=== PATIENT | female | born 1955 | race Caucasian/White ===

== ENCOUNTER 2022-02-09 10:43 | Outpatient (REF) | payer MEDICARE, MEDICAID, SELFPAY ==
[2022-02-09 11:03] LABS: MANUAL DIFF FLAG NO
[2022-02-09 12:10] LABS: Basophils Absolute Auto 0.1 X10*3/uL (0.0-0.2); Basophils Percent Auto 0.8 % (0-2); Eosinophils Absolute Auto 0.4 X10*3/uL (0.0-0.4); Eosinophils Percent Auto 4.2 % (0-4); Hematocrit 38.6 % (37.0-47.0); Hemoglobin 12.9 g/dl (12.0-16.0); Imm Gran Abs Auto 0.05 X10*3/uL (0.00-0.03); Imm Gran Pct Auto 0.5 % (0.0-0.4); Lymphocytes Absolute Auto 1.3 X10*3/uL (1.2-4.9); Lymphocytes Percent Auto 13.3 % (20-40); Mean Corpuscular HGB Conc 33.4 g/dl (31.0-35.0); Mean Corpuscular Hemoglobin 30.1 pg (27.0-33.0); Mean Platelet Volume 10.7 fL (9.4-12.3); Monocytes Percent Auto 10.2 % (2-11); Neutrophils Absolute Auto 7.1 x10*3/uL (2.0-8.3); Platelet Count 371 X10*3/uL (160-400); Red Blood Count 4.29 X10*6/uL (4.20-5.50); Red Cell Distribution Width 13.3 % (11.0-16.0)
[2022-02-09 12:49] LABS: Erythrocyte Sedimentation Rate 25 MM/HR (0-20)
[2022-02-09 13:01] LABS: Alanine Aminotransferase 11 U/L (0-31); Albumin Level 4.3 g/dL (3.5-5.0); Alkaline Phosphatase 105 U/L (39-117); Anion Gap 20 (12-20); Aspartate Amino Transferase 19 U/L (5-31); Bilirubin Total 0.2 mg/dL (0.0-1.0); Blood Urea Nitrogen 12 mg/dL (9-16); C Reactive Protein 2.23 mg/dL (< or = 0.50); Calcium 9.6 mg/dL (8.4-10.2); Carbon Dioxide 19 mmol/L (22-29); Chloride 105 mmol/L (96-108); Estimated Glomerular Filt Rate > 60; Glucose Random 83 mg/dL (60-115); Potassium 4.8 mmol/L (3.3-5.1); Sodium 139 mmol/L (135-145); Total Protein 7.1 g/dL (6.5-8.0)
== END 2022-02-09 10:44 | disposition home or self-care (01) ==
LOC: HO.LAB 10:43
PROVIDERS: Visit Provider Internal Medicine Rheumatology
DX: M05.79 Rheumatoid arthritis with rheumatoid factor of multiple sites without organ or systems involvement (principal); M81.0 Age-related osteoporosis without current pathological fracture
CPT/HCPCS: 20605; 36415; 80053; 85025; 85652; 86140; 99212

== ENCOUNTER → 2022-06-08 09:10 | Outpatient (BNVA) | payer MEDICARE, MEDICAID, SELFPAY | PROVIDERS: Visit Provider Internal Medicine Rheumatology | DX: M05.79 Rheumatoid arthritis with rheumatoid factor of multiple sites without organ or systems involvement (principal); M47.816 Spondylosis without myelopathy or radiculopathy, lumbar region; Z79.899 Other long term (current) drug therapy; Z96.649 Presence of unspecified artificial hip joint | CPT/HCPCS: 99212 ==

== ENCOUNTER 2022-11-09 08:50 | Outpatient (AMB) | payer MEDICARE, MEDICAID, SELFPAY ==
--- NOTE | 2022-11-09 08:57 | MHC.OFFVIS ---
Intake Vital Signs 11/09/22 08:57 11/09/22 08:58 Height 4 ft 11 in 4 ft 11 in Weight 169 lb 1.513 oz BMI 34.1 BP 154/90 H Blood Pressure Location Rt brachial Position Sitting Pulse 88 Pulse Source Pulse Oximeter Pulse Oximetry (%) 94 Oxygen Delivery Method Room Air Intake Visit Reasons: ra/oa - LVM with appt Intake Note: Patient presents for RA/OA Allergies codeine Allergy (Intermediate, Verified 11/09/22 09:02) Nausea and Vomiting zolpidem [From Ambien] Adverse Reaction (Severe, Verified 11/09/22 09:02) kidneys crashed Medication List - Last Reconciled 11/09/22 by Franco Longoria MD albuterol sulfate 90 mcg/actuation (ProAir HFA) 2 puffs inhalation Q6H PRN ascorbate calcium (vitamin C) 500 mg PO DAILY cholecalciferol (vitamin D3) 25 mcg PO DAILY citalopram 20 mg PO DAILY cyanocobalamin (vitamin B-12) 1,000 mcg PO DAILY cyclobenzaprine 10 mg PO TID PRN gabapentin 600 mg PO TID hydroxychloroquine 300 mg (1.5 x 200 mg) PO DAILY hydroxyzine HCl 10 mg PO TID PRN loperamide 2 mg PO DAILY losartan 25 mg PO DAILY meloxicam 7.5 - 15 mg (1 - 2 x 7.5 mg) PO DAILY PRN multivitamin 1 tab PO DAILY pantoprazole 20 mg PO DAILY simvastatin 40 mg PO BEDTIME sulfasalazine 0.5 grams PO QID vitamin B complex 1 tab PO DAILY HPI HPI Comments History of Present Illness Details The patient returns for evaluation of her rheumatoid arthritis. She remains on hydroxychloroquine 300 mg daily, gabapentin 600 mg t.i.d., meloxicam 7.5 mg daily, and sulfasalazine 1 g b.i.d.. She reports some pain in the right foot. She notes some splaying of the right 2nd and 3rd toes with some MTP pain in those areas. There was no injury involved. This has been going on for at least 2 or 3 months. She gets back pain but otherwise does not have other significant pains. Her respiratory status has been stable with no recent infections or flare of her COPD. She uses oxygen when she has shortness of breath with exercise. She is overdue for an eye exam for monitoring her hydroxychloroquine use. [facility], [facility] Medical History Alcohol abuse Back pain Bronchitis COPD (chronic obstructive pulmonary disease) Depression GERD (gastroesophageal reflux disease) Hyperlipemia Hypertension Lung nodule Osteoarthritis Restless leg syndrome Seropositive rheumatoid arthritis Tuberculosis Surgical History Cataracts, bilateral H/O tubal ligation History of back surgery History of hip replacement History of neck surgery Normal colonoscopy Normal endoscopic ultrasound of upper gastrointestinal tract Family History Father Diabetes Hypertension CVA (cerebral vascular accident) Renal cancer Mother Diabetes CHF (congestive heart failure) Sister Arthritis CAD (coronary artery disease) Sister Arthritis Thyroid disease CVA (cerebral vascular accident) Social History Household Members: Family Housing: House Alcohol intake: current Alcohol intake frequency: a few times a month Alcohol type: beer Patient Tobacco Use Status: Former Tobacco user Years Smoked: quit 2 1/2 years ago e-Cigarette/Vaping Use: Currently Using service: No Current occupational status: retired 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 Card Details: Negative chest pain, edema and syncope Resp Details: She has her usual exertional dyspnea. Negative for cough and wheezing GI Details: Negative indigestion/heartburn, nausea, abdominal pain, bowel changes, diarrhea, constipation and bloody stool. Endo Details: Negative for polyuria and polydypsia Kane/Lymph Details: Negative for excessive bruising or bleeding. Physical Exam Vital Signs: Last Vital Signs Pulse 88 11/09/22 08:58 BP 154/90 H 11/09/22 08:58 Pulse Ox 94 11/09/22 08:58 Oxygen Delivery Method Room Air 11/09/22 08:58 BMI result Body Mass Index 34.1 APPEARANCE: Patient in no acute distress EYES no redness, pupils equal and reactive to light, eyelids normal EXTREMITIES: No edema, no calf tenderness, normal peripheral pulses. JOINT EXAM: Cervical Spine:.? Mild discomfort with rotation at 30 degrees or lateral flexion of 15 degrees.? No tenderness. Thoracic Spine:.? No scoliosis.? No tenderness on palpation. Lumbar Spine:.? Alignment normal.? Lumbar pain with flexion of 45 degrees.? No tenderness. Chest Wall:.? No tenderness, swelling, increased warmth or erythema. Hands:? Right:? Slight swelling without tenderness at the 1st 3 MCP joints.? There is some tenderness along the 3rd flexor tendon.? There is mild tenderness and soft tissue swelling at the 3rd PIP.? No thenar atrophy or sensory loss.? Left:? There is slight thickening and tenderness of the 1st 3 MCP joints.? She has? Mild tenderness and triggering at the 4th flexor tendon.? There is slight swelling of the PIP joints but with no tenderness.? Other joints are not tender or swollen today.? No thenar atrophy or sensory loss.? Wrists:? Right:? Mild pain with flexion at 45 degrees or with extension at 30 degrees.? There is significant dorsal swelling and mild to moderate dorsal and ventral tenderness but no redness or warmth.? Left:?? Mild pain with flexion extension at 60 degrees with some mild tenderness but no swelling.? No redness or warmth. Elbows:? Right:? Mild pain with flexion beyond 100 degrees or attempts at full extension.? She lacks about 15 degrees of full extension.? There is mild swelling and tenderness over the joint space but no redness or warmth.? Left:? Normal pain-free range of motion without tenderness, swelling, increased warmth or erythema. Shoulders:? Right: mild pain with abduction at 110 degrees or with extremes of internal or external rotation.? Mild anterior tenderness.? Left:?? Full range of motion without pain. No tenderness, weakness, swelling, increased warmth or erythema. Hips:? Right:? Decreased internal and external rotation to about 10 degrees each.? There is slight buttock discomfort with extremes of rotation.? No groin pain with motion.? Left:? Full range of motion without pain. Hip bursa:.? No tenderness. Knees:.?? Normal pain-free range of motion with mild patellofemoral crepitus but no effusion, tenderness, swelling, increased warmth or erythema.? There is no effusion or crepitation Ankles:.? Normal pain-free range of motion without tenderness, swelling, increased warmth or erythema. Feet:.? Right:? There is some soft tissue swelling in the 2nd-4th MTP joints. The 3rd is particularly tender but the others are mildly tender as well. There was no breaks in the skin, redness or warmth..? Left:? Normal pain-free range of motion without tenderness, swelling, increased warmth or erythema. ? Results Reviewed Results Reviewed: Lab work from [facility]: April 2022: Hemoglobin 13, white count 10.12 Aug 2022: Creatinine 0.85, AST 23, ALT 20, alkaline phosphatase 108 Assessment & Plan Assessment & Plan (1) assisted use of drug: Code(s): Z79.899 - Other terminal superintendent (current) drug therapy (2) COPD (chronic obstructive pulmonary disease): Code(s): J44.9 - Chronic obstructive pulmonary disease, unspecified (3) Osteoarthritis of lumbar spine: Comment: PVSS in the past, with multiple injections, opiates stopped 06/[address] Trimble felt that she was not receiving benefit and had comorbidities of depression and lack of effective coping skills. 08/26: L4-L5 fusion Code(s): M47.816 - Spondylosis without myelopathy or radiculopathy, lumbar region (4) Seropositive rheumatoid arthritis of multiple joints: Comment: Onset ~2013. RF and CCP positive Humira 11/25 - 02/25 - helpful but she ended up being hospitalized for pneumonia. March 2018: Hydroxychloroquine started. Eye exam OK 07/27 05/29: sulfasalazine added Code(s): M05.79 - Rheumatoid arthritis with rheumatoid factor of multiple sites without organ or systems involvement Plan The patient has some thickening in a few of the small joints in the hands but none of these were appreciably tender. However in the MTP region of the right foot there is tenderness and swelling. This is likely to be synovitis from the RA. She also could have incurred a stress fracture there so we will get an x-ray. We again discussed that additional antirheumatic treatment at this point would put her at greater risk for infection and she does not want to proceed with that for now. Her COPD seems stable but in the past she got into trouble with respiratory infections so she wishes to avoid immunosuppressive treatment. The lumbar pain from OA seems to be stable for now. We will get back to her with the results of the x-ray. In the meantime she will continue with current treatment. She could also see Podiatry about the foot pain. Recent blood work looked okay so I do not think we need to repeat that. She was again encouraged to follow through with Ophthalmology evaluation to monitor for hydroxychloroquine retinal toxicity. A follow-up in 4-5 months is recommended. 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
[2022-11-09 08:58] VITALS: BP 154/90; PULSE 88; O2SAT 94; BMI 34.1
== END 2022-11-09 09:31 | disposition home or self-care (01) ==
PROVIDERS: Visit Provider Internal Medicine Rheumatology
DX: Z79.899 Other long term (current) drug therapy (principal); J44.9 Chronic obstructive pulmonary disease, unspecified; M47.816 Spondylosis without myelopathy or radiculopathy, lumbar region; M05.79 Rheumatoid arthritis with rheumatoid factor of multiple sites without organ or systems involvement
CPT/HCPCS: 99213

== ENCOUNTER 2022-11-09 08:50 | Outpatient (REF) | payer MEDICARE, SELFPAY ==
--- NOTE | ~2022-11-09 | XR_ITS ---
EXAMINATION: XR FOOT, RIGHT CLINICAL INFORMATION: Pain in right foot ? Stress fracture. History RA and osteoporosis Patient states pain in separation between second and third digits COMPARISON: None available. TECHNIQUE: AP, lateral, and oblique views of the right foot. FINDINGS: There is separation of the second and third toes, wider than usual, which is likely due to the webbing the second and third digits, likely congenital. The bones are intact. No fracture. There is moderate degenerative change of the first metatarsophalangeal joint with marginal osteophyte formation. The second through fifth toes are flexed, limiting evaluation. There is a small erosion involving the head of the second metatarsal. XR/XR foot RT min 3V IMPRESSION: 1. Erosion involving the head of the second metatarsal. 2. Moderate degenerative change of the first metatarsophalangeal joint.
== END 2022-11-09 08:51 | disposition home or self-care (01) ==
LOC: HO.XRAY 08:50
PROVIDERS: Visit Provider Internal Medicine Rheumatology
DX: M24.174 Other articular cartilage disorders, right foot (principal); M79.672 Pain in left foot; M94.8X7 Other specified disorders of cartilage, ankle and foot
CPT/HCPCS: 73630; 99212

== ENCOUNTER 2023-03-22 08:47 | Outpatient (AMB) | payer MEDICARE, MEDICAID, SELFPAY ==
--- NOTE | 2023-03-22 08:48 | MHC.OFFVIS ---
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: No Accompanied by: Daughter Allergies codeine Allergy (Intermediate, Verified 03/22/23 08:56) Nausea and Vomiting zolpidem [From Ambien] Adverse Reaction (Severe, Verified 03/22/23 08:56) kidneys crashed Medication List - Last Reconciled 03/22/23 by Leia Molina RN albuterol sulfate 90 mcg/actuation (ProAir HFA) 2 puffs inhalation Q6H PRN ascorbate calcium (vitamin C) 500 mg PO DAILY cholecalciferol (vitamin D3) 25 mcg PO DAILY citalopram 20 mg PO DAILY cyanocobalamin (vitamin B-12) 1,000 mcg PO DAILY cyclobenzaprine 10 mg PO TID PRN gabapentin 600 mg PO TID hydroxychloroquine 300 mg (1.5 x 200 mg) PO DAILY hydroxyzine HCl 10 mg PO TID PRN loperamide 2 mg PO DAILY losartan 25 mg PO DAILY meloxicam 7.5 - 15 mg (1 - 2 x 7.5 mg) PO DAILY PRN multivitamin 1 tab PO DAILY pantoprazole 20 mg PO DAILY simvastatin 40 mg PO BEDTIME sulfasalazine 500 mg PO QID vitamin B complex 1 tab PO DAILY HPI HPI Comments History of Present Illness Details The patient returns accompanied by her daughter today for evaluation of her rheumatoid arthritis and osteoarthritis. She remains on hydroxychloroquine 300 mg daily, gabapentin 600 mg t.i.d., meloxicam 7.5 mg daily and sulfasalazine 1 g b.i.d.. With this regimen she seems to be reasonably comfortable. There is some back pain that radiates to the right buttock and RLQ. She was in the ER a few months ago with that pain. They did check out her abdomen with a CT scan. There were vascular calcifications and she was sent to a vascular surgeon but has not made that appointment. She does not seem to have any claudication in the legs however. She is also on citalopram for depression. I had ordered an ECG to monitor that use in conjunction with hydroxychloroquine but she has not done it yet. She is also overdue for an eye exam. The daughter is here today and will call for an appointment with the eye doctor to monitor her hydroxychloroquine. She was using a relative's walker but it seems to be malfunctioning. She gets pain in the hip and shortness of breath when she walks so needs a walker with a seat. [facility] Medical History Alcohol abuse Osteoarthritis Seropositive rheumatoid arthritis Back pain Restless leg syndrome Tuberculosis Depression Lung nodule COPD (chronic obstructive pulmonary disease) Bronchitis GERD (gastroesophageal reflux disease) Hyperlipemia Hypertension Surgical History H/O tubal ligation History of hip replacement Cataracts, bilateral History of neck surgery History of back surgery Normal endoscopic ultrasound of upper gastrointestinal tract Normal colonoscopy Family History Father Diabetes Hypertension CVA (cerebral vascular accident) Renal cancer Mother Diabetes CHF (congestive heart failure) Sister Arthritis CAD (coronary artery disease) Sister Arthritis Thyroid disease CVA (cerebral vascular accident) Social History Household Members: Family Housing: House Alcohol intake: current Alcohol intake frequency: a few times a month Alcohol type: beer Patient Tobacco Use Status: Former Tobacco user Years Smoked: quit 2 1/2 years ago e-Cigarette/Vaping Use: Currently Using service: No Current occupational status: retired 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 Card Details: Negative chest pain, edema and syncope Resp Details: Stable chronic exertional dyspnea. She does use home O2 occasionally. Negative for cough and wheezing GI Details: Negative indigestion/heartburn, nausea, abdominal pain, bowel changes, diarrhea, constipation and bloody stool. Endo Details: Negative for polyuria and polydypsia Kane/Lymph Details: Negative for excessive bruising or bleeding. Physical Exam Vital Signs: Last Vital Signs Temp 96.8 F 03/22/23 08:49 Pulse 85 03/22/23 08:49 Resp 16 03/22/23 08:49 BP 140/76 H 03/22/23 08:49 Pulse Ox 98 03/22/23 08:49 Oxygen Delivery Method Room Air 03/22/23 08:49 BMI result Body Mass Index 33.6 APPEARANCE: Patient in no acute distress EYES no redness, pupils equal and reactive to light, eyelids normal THROAT: Oral mucosa moist, no ulcerations NECK: No thyromegaly or masses, no adenopathy, trachea midline. HEART: Regulrar rhythm, S1-S2 heard, no murmurs, rubs or gallops. LUNG: Clear to percussion and auscultation ABD: Normal bowel sounds, no organomegaly, masses or tenderness. EXTREMITIES: No edema, no calf tenderness; the pulse on the right foot is 1+ in is 2+ on the left. No evidence for tissue ischemia. NEURO: Oriented and alert x3. No focal weakness. Reflexes symmetric. Gait slow and hesitant. SKIN: No inflammatory or neoplastic lesions. Normal color and turgor JOINT EXAM: ?Cervical Spine:.? Mild discomfort with rotation at 30 degrees or lateral flexion of 15 degrees.? No tenderness. Thoracic Spine:.? No scoliosis.? No tenderness on palpation. Lumbar Spine:.? Alignment normal.? Lumbar pain with flexion of 45 degrees.? No tenderness. Chest Wall:.? No tenderness, swelling, increased warmth or erythema. Hands:? Right:? Slight swelling without tenderness at the 1st 3 MCP joints.? There is no tenderness along the flexor tendons..? There is mild tenderness and soft tissue swelling at the 3rd PIP.? No thenar atrophy or sensory loss.? Left:? There is slight thickening and tenderness of the 1st 3 MCP joints.? She has? no triggering or tenderness in the flexor tendons.? There is slight swelling of the PIP joints but with no tenderness.? Other joints are not tender or swollen today.? No thenar atrophy or sensory loss.? Wrists:? Right:? Mild discomfort with flexion at 60 degrees or extension at 45 degrees.? There is mild dorsal swelling and mild dorsal and ventral tenderness but no redness or warmth.? Left:?? Mild pain with flexion extension at 60 degrees with some mild tenderness but no swelling.? No redness or warmth. Elbows:? Right:? Mild pain with flexion beyond 100 degrees or attempts at full extension.? She lacks about 15 degrees of full extension.? There is mild swelling and tenderness over the joint space but no redness or warmth.? Left:? Normal pain-free range of motion without tenderness, swelling, increased warmth or erythema. Shoulders:? Right: mild pain with abduction at 135 degrees or with extremes of internal or external rotation.? Mild anterior tenderness.? Left:?? Full range of motion without pain. No tenderness, weakness, swelling, increased warmth or erythema. Hips:? Right: Decreased internal and external rotation to about 10 degrees each.? There is slight buttock discomfort with extremes of rotation.? No groin pain with motion.? Left:? Full range of motion without pain. Hip bursa:.? No tenderness. Knees:.?? Normal pain-free range of motion with mild patellofemoral crepitus but no effusion, tenderness, swelling, increased warmth or erythema.? There is no effusion or crepitation Ankles:.? Normal pain-free range of motion without tenderness, swelling, increased warmth or erythema. Feet:.? Right:? There is some soft tissue swelling in the 2nd-4th MTP joints. The 3rd is particularly tender but the others are mildly tender as well. There was no breaks in the skin, redness or warmth..? Left:? Normal pain-free range of motion without tenderness, swelling, increased warmth or erythema. ?? Results Reviewed Results Reviewed: Laboratory Tests 02/09/22 11:01 Hgb 12.9 ESR 25 H Creatinine 0.72 AST 19 ALT 11 C-Reactive Protein 2.23 H Assessment & Plan Assessment & Plan (1) Osteoarthritis of lumbar spine: Comment: PVSS in the past, with multiple injections, opiates stopped 06/[address] Trimble felt that she was not receiving benefit and had comorbidities of depression and lack of effective coping skills. 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 RF and CCP positive Humira 11/25 - 02/25 - helpful but she ended up being hospitalized for pneumonia. March 2018: Hydroxychloroquine started. Eye exam OK 07/27 05/29: sulfasalazine added Code(s): M05.79 - Rheumatoid arthritis with rheumatoid factor of multiple sites without organ or systems involvement Plan Rheumatoid arthritis with a few swollen joints but not too much in the way of tenderness. She is I think therefore relatively well controlled with current treatment. Additional medication use with immunosuppressive is I think would be too risky for her. She is also limited by lower back pain due to lumbar osteoarthritis which tends to radiate to the right hip. The right hip replacement I think is doing okay. I gave her a prescription for a walker. I think she should probably get one with a seat since she has the COPD and back pain that is worse with walking. It would also help her walk with oxygen when needed. This would allow her to remain more mobile and maintain some degree of fitness. We will check lab work to monitor her sulfasalazine and meloxicam use. I again encouraged him to make an appointment to have the eyes evaluation for possible side effects from the hydroxychloroquine. A follow-up in 6 months seems reasonable. Orders: Orders Erythrocyte Sedimentation Rate Today M05.79 - Rheumatoid arthritis with rheumatoid factor of multiple sites without organ or systems involvement, Z79.899 - Other termite control servicer (current) drug therapy Complete Blood Count Auto Diff Today Z79.899 - Other termite control servicer (current) drug therapy Comprehensive Met. 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
[2023-03-22 08:49] VITALS: BP 140/76; PULSE 85; RESP 16; TEMP 36; O2SAT 98; BMI 33.6
== END 2023-03-22 09:35 | disposition home or self-care (01) ==
PROVIDERS: Visit Provider Internal Medicine Rheumatology
DX: M47.816 Spondylosis without myelopathy or radiculopathy, lumbar region (principal); Z79.899 Other long term (current) drug therapy; J44.9 Chronic obstructive pulmonary disease, unspecified; M05.79 Rheumatoid arthritis with rheumatoid factor of multiple sites without organ or systems involvement
CPT/HCPCS: 99214

== ENCOUNTER → 2023-03-22 08:47 | Outpatient (REF) | payer MEDICARE, MEDICAID, SELFPAY ==
--- NOTE | 2023-03-22 10:01 | ECG_ITS ---
Test Reason : skilled nursing drug therapy Blood Pressure : / mmHG Vent. Rate : 081 BPM Atrial Rate : 081 BPM P-R Int : 164 ms QRS Dur : 072 ms QT Int : 382 ms P-R-T Axes : 038 016 051 degrees QTc Int : 443 ms Normal sinus rhythm Normal ECG No previous ECGs available Referred By: Franco Longoria Electronically Signed By:Josh Black
== END ==
LOC: HO.CARD 08:47
PROVIDERS: Visit Provider Internal Medicine Rheumatology
DX: M05.79 Rheumatoid arthritis with rheumatoid factor of multiple sites without organ or systems involvement (principal); M47.816 Spondylosis without myelopathy or radiculopathy, lumbar region; J44.9 Chronic obstructive pulmonary disease, unspecified; Z79.899 Other long term (current) drug therapy
CPT/HCPCS: 93005; 99212

== ENCOUNTER 2023-03-22 09:37 | Outpatient (REF) | payer MEDICARE, MEDICAID, SELFPAY ==
[2023-03-22 10:20] LABS: MANUAL DIFF FLAG NO
[2023-03-22 10:30] LABS: Basophils Absolute Auto 0.1 X10*3/uL (0.0-0.2); Eosinophils Absolute Auto 0.5 X10*3/uL (0.0-0.4); Eosinophils Percent Auto 4.4 % (0-4); Hematocrit 40.7 % (37.0-47.0); Hemoglobin 13.3 g/dl (12.0-16.0); Imm Gran Abs Auto 0.04 X10*3/uL (0.00-0.03); Imm Gran Pct Auto 0.4 % (0.0-0.4); Lymphocytes Absolute Auto 1.4 X10*3/uL (1.2-4.9); Lymphocytes Percent Auto 12.6 % (20-40); Mean Corpuscular HGB Conc 32.7 g/dl (31.0-35.0); Mean Corpuscular Hemoglobin 30.9 pg (27.0-33.0); Mean Corpuscular Volume 94.7 fL (80.0-98.0); Mean Platelet Volume 10.1 fL (9.4-12.3); Monocytes Absolute Auto 1.2 X10*3/uL (0.1-1.2); Monocytes Percent Auto 10.3 % (2-11); Neutrophils Absolute Auto 8.1 x10*3/uL (2.0-8.3); Neutrophils Percent Auto 71.3 % (45-73); Platelet Count 420 X10*3/uL (160-400); White Blood Count 11.4 X10*3/uL (4.8-10.8)
[2023-03-22 10:40] LABS: Alanine Aminotransferase 14 U/L (0-31); Albumin Level 4.3 g/dL (3.5-5.0); Alkaline Phosphatase 107 U/L (39-117); Anion Gap 14 (12-20); Aspartate Amino Transferase 22 U/L (5-31); Bilirubin Total 0.5 mg/dL (0.0-1.0); Blood Urea Nitrogen 12 mg/dL (9-16); C Reactive Protein 1.45 mg/dL (< or = 0.50); Calcium 9.7 mg/dL (8.4-10.2); Carbon Dioxide 25 mmol/L (22-29); Chloride 105 mmol/L (96-108); Estimated Glomerular Filt Rate > 60; Glucose Random 101 mg/dL (60-115); Potassium 4.2 mmol/L (3.3-5.1); Sodium 140 mmol/L (135-145); Total Protein 7.5 g/dL (6.5-8.0)
[2023-03-22 12:54] LABS: Erythrocyte Sedimentation Rate 19 MM/HR (0-20)
== END 2023-03-22 09:38 | disposition home or self-care (01) ==
LOC: HO.10HDL 09:37
PROVIDERS: Visit Provider Internal Medicine Rheumatology
DX: M05.79 Rheumatoid arthritis with rheumatoid factor of multiple sites without organ or systems involvement (principal); Z79.899 Other long term (current) drug therapy
CPT/HCPCS: 36415; 80053; 85025; 85652; 86140

== ENCOUNTER → 2023-03-22 10:01 | Outpatient (BNV) | payer MEDICARE, MEDICAID, SELFPAY | PROVIDERS: Visit Provider Internal Medicine Cardiovascular Disease | DX: Z51.81 Encounter for therapeutic drug level monitoring (principal); Z79.899 Other long term (current) drug therapy; M05.79 Rheumatoid arthritis with rheumatoid factor of multiple sites without organ or systems involvement | CPT/HCPCS: 93010 ==

== ENCOUNTER 2023-09-21 10:30 | Outpatient (AMB) | payer MEDICARE, MEDICAID, SELFPAY ==
[2023-09-21 10:40] VITALS: BP 144/76; PULSE 76; O2SAT 95; BMI 33.9
--- NOTE | 2023-09-21 10:40 | MHC.OFFVIS ---
Vital Signs 09/21/23 10:40 Height 4 ft 11 in Weight 167 lb 15.876 oz BMI 33.9 BP 144/76 H Blood Pressure Location Rt brachial Position Sitting Pulse 76 Pulse Source Pulse Oximeter Pulse Oximetry (%) 95 Oxygen Delivery Method Room Air Intake Visit Reasons: ra/oa Intake Note: Patient last seen 03/22/[address] Longoria, presents today for follow up. 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 De Leon 67 yoF returns follow-up rheumatoid arthritis and osteoarthritis. She is accompanied by her daughter today for evaluation of her. She remains on hydroxychloroquine 300 mg daily, gabapentin 600 mg t.i.d., meloxicam 7.5 mg daily and sulfasalazine 1 g b.i.d.. She denies that she is ever comfortable with her joints. Does not want to try other medications because of the potential side effects. --humira - recurring PNU 03/2023 Dr. Longoria: The patient returns accompanied by her daughter today for evaluation of her rheumatoid arthritis and osteoarthritis. She remains on hydroxychloroquine 300 mg daily, gabapentin 600 mg t.i.d., meloxicam 7.5 mg daily and sulfasalazine 1 g b.i.d.. With this regimen she seems to be reasonably comfortable. There is some back pain that radiates to the right buttock and RLQ. She was in the ER a few months ago with that pain. They did check out her abdomen with a CT scan. There were vascular calcifications and she was sent to a vascular surgeon but has not made that appointment. She does not seem to have any claudication in the legs however. She is also on citalopram for depression. I had ordered an ECG to monitor that use in conjunction with hydroxychloroquine but she has not done it yet. She is also overdue for an eye exam. The daughter is here today and will call for an appointment with the eye doctor to monitor her hydroxychloroquine. She was using a relative's walker but it seems to be malfunctioning. She gets pain in the hip and shortness of breath when she walks so needs a walker with a seat. [facility] Medical History Alcohol abuse Osteoarthritis Seropositive rheumatoid arthritis Back pain Restless leg syndrome Tuberculosis Depression Lung nodule COPD (chronic obstructive pulmonary disease) Bronchitis GERD (gastroesophageal reflux disease) Hyperlipemia Hypertension Surgical History H/O tubal ligation History of hip replacement Cataracts, bilateral History of neck surgery History of back surgery Normal endoscopic ultrasound of upper gastrointestinal tract Normal colonoscopy Family History Father Diabetes Hypertension CVA (cerebral vascular accident) Renal cancer Mother Diabetes CHF (congestive heart failure) Sister Arthritis CAD (coronary artery disease) Sister Arthritis Thyroid disease CVA (cerebral vascular accident) Social History Household Members: Family Housing: House Alcohol intake: current Alcohol intake frequency: a few times a month Alcohol type: beer Patient Tobacco Use Status: Former Tobacco user Years Smoked: quit 2 1/2 years ago e-Cigarette/Vaping Use: Currently Using service: No Current occupational status: retired 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 HEART: Regulrar rhythm, S1-S2 heard, no murmurs, rubs or gallops. LUNG: Clear to percussion and auscultation ABD: Normal bowel sounds, no organomegaly, masses or tenderness. EXTREMITIES: No edema, no calf tenderness; the pulse on the right foot is 1+ in is 2+ on the left. No evidence for tissue ischemia. NEURO: Oriented and alert x3. No focal weakness. Reflexes symmetric. Gait slow and hesitant. SKIN: No inflammatory or neoplastic lesions. Normal color and turgor JOINT EXAM: Chest Wall:.? No tenderness, swelling, increased warmth or erythema. Hands:? Right:? Slight to mild swelling with mild tenderness at the 1st 3 MCP joints.? There is no tenderness along the flexor tendons..? There is mild tenderness and soft tissue swelling at the 3rd PIP.? No thenar atrophy or sensory loss.? Left:? There is slight thickening but no tenderness of the 1st 2 MCP joints.? She has? no triggering or tenderness in the flexor tendons.? Other joints are not tender or swollen today.? No thenar atrophy or sensory loss.? Wrists:? Left:? Mild discomfort with flexion at 60 degrees or extension at 45 degrees.? There is mild dorsal swelling and mild dorsal and ventral tenderness but no redness or warmth.? Right:?? Mild pain with flexion extension at 60 degrees but no tenderness or swelling.? No redness or warmth. Elbows:? Right:? Mild pain with flexion beyond 100 degrees or attempts at full extension.? She lacks about 15 degrees of full extension.? There is mild swelling and tenderness over the joint space but no redness or warmth.? Left:? Normal pain-free range of motion without tenderness, swelling, increased warmth or erythema. Shoulders:? Right: mild pain with abduction at 135 degrees or with extremes of internal or external rotation.? Mild anterior tenderness.? Left:?? Full range of motion without pain. No tenderness, weakness, swelling, increased warmth or erythema. Hips:? Right: Decreased internal and external rotation to about 10 degrees each.? There is slight buttock discomfort with extremes of rotation.? No groin pain with motion.? Left:? Full range of motion without pain. Hip bursa:.? No tenderness. Knees:.?? Normal pain-free range of motion with mild patellofemoral crepitus but no effusion, tenderness, swelling, increased warmth or erythema.? There is no effusion or crepitation Ankles:.? Normal pain-free range of motion without tenderness, swelling, increased warmth or erythema. Feet:.? Right:? There is no more some soft tissue swelling in the 2nd-4th MTP joints. The 3rd is particularly tender but the others are no longer mildly tender as well. There was no breaks in the skin, redness or warmth..? Left:? Normal pain-free range of motion without tenderness, swelling, increased warmth or erythema. ?? Results Reviewed Results Reviewed: Laboratory Tests 03/22/23 09:45 WBC 11.4 H Plt Count 420 H ESR 19 AST 22 ALT 14 C-Reactive Protein 1.45 H Assessment & Plan Assessment & Plan (1) Seropositive rheumatoid arthritis of multiple joints: Comment: Onset ~2013. RF and CCP positive Humira 11/25 - 02/25 - helpful but she ended up being hospitalized for pneumonia. March 2018: Hydroxychloroquine started. Eye exam OK 07/27 05/29: sulfasalazine added Code(s): M05.79 - Rheumatoid arthritis with rheumatoid factor of multiple sites without organ or systems involvement Category: Medical (2) Long-term use of hydroxychloroquine: Code(s): Z79.899 - Other custodial (current) drug therapy Category: Medical (3) Osteoarthritis of lumbar spine: Comment: PVSS in the past, with multiple injections, opiates stopped 06/[address] Trimble felt that she was not receiving benefit and had comorbidities of depression and lack of effective coping skills. 08/26: L4-L5 fusion Code(s): M47.816 - Spondylosis without myelopathy or radiculopathy, lumbar region Category: Medical Qualifiers: Spinal osteoarthritis complication: unspecified spinal osteoarthritis Qualified Code(s): M47.816 - Spondylosis without myelopathy or radiculopathy, lumbar region Plan #Rheumatoid arthritis with a few swollen joints with tenderness. She will continue HCQ 300 mg QD and SLZ 1g QD. Continue Meloxicam 7.mg QD, Gabapentin 600mg TID. Patient does use walker - not present at visit. #Halfway Use: Eye Exam 06/21/2022 - Ok to continue HCQ. We will obtain updated labs today and for next visit. F/u 6 months Spent 30 minutes reviewing history, evaluating patient and documenting. Prior Assessment 03/2023: She is I think therefore relatively well controlled with current treatment. Additional medication use with immunosuppressive is I think would be too risky for her. She is also limited by lower back pain due to lumbar osteoarthritis which tends to radiate to the right hip. The right hip replacement I think is doing okay. I gave her a prescription for a walker. I think she should probably get one with a seat since she has the COPD and back pain that is worse with walking. It would also help her walk with oxygen when needed. This would allow her to remain more mobile and maintain some degree of fitness. We will check lab work to monitor her sulfasalazine and meloxicam use. I again encouraged him to make an appointment to have the eyes evaluation for possible side effects from the hydroxychloroquine. A follow-up in 6 months seems reasonable. Orders: Orders Erythrocyte Sedimentation Rate Today M05.79 - Rheumatoid arthritis with rheumatoid factor of multiple sites without organ or systems involvement, Z79.899 - Other custodial (current) drug therapy Comprehensive Met. Panel Today M05.79 - Rheumatoid arthritis with rheumatoid factor of multiple sites without organ or systems involvement, Z79.899 - Other director long term care (current) drug therapy Complete Blood Count Auto Diff Today M05.79 - Rheumatoid arthritis with rheumatoid factor of multiple sites without organ or systems involvement, Z79.899 - Other custodial (current) drug therapy C Reactive Protein Today M05.79 - Rheumatoid arthritis with rheumatoid factor of multiple sites without organ or systems involvement, Z79.899 - Other director long term care (current) drug therapy Coding Level of Care Code Est Pt Level 3 (96519) Complex EM visit Add On G2211 Diagnoses Seropositive rheumatoid arthritis of multiple joints M05.79 Long-term use of hydroxychloroquine Z79.899 Osteoarthritis of lumbar spine, unspecified spinal osteoarthritis complication status M47.816 Spinal osteoarthritis complication: unspecified spinal osteoarthritis
== END 2023-09-21 11:09 | disposition home or self-care (01) ==
PROVIDERS: Visit Provider Nurse Practitioner Family
DX: M05.79 Rheumatoid arthritis with rheumatoid factor of multiple sites without organ or systems involvement (principal); Z79.899 Other long term (current) drug therapy; M47.816 Spondylosis without myelopathy or radiculopathy, lumbar region
CPT/HCPCS: 99213; G2211

== ENCOUNTER 2023-09-21 11:24 | Outpatient (REF) | payer MEDICARE, MEDICAID, SELFPAY ==
[2023-09-21 13:11] LABS: MANUAL DIFF FLAG NO
[2023-09-21 13:24] LABS: Basophils Absolute Auto 0.1 X10*3/uL (0.0-0.2); Eosinophils Absolute Auto 0.4 X10*3/uL (0.0-0.4); Eosinophils Percent Auto 4.2 % (0-4); Hematocrit 39.1 % (37.0-47.0); Hemoglobin 12.8 g/dl (12.0-16.0); Imm Gran Abs Auto 0.02 X10*3/uL (0.00-0.03); Imm Gran Pct Auto 0.2 % (0.0-0.4); Lymphocytes Absolute Auto 1.3 X10*3/uL (1.2-4.9); Lymphocytes Percent Auto 13.3 % (20-40); Mean Corpuscular HGB Conc 32.7 g/dl (31.0-35.0); Mean Corpuscular Hemoglobin 30.5 pg (27.0-33.0); Mean Corpuscular Volume 93.3 fL (80.0-98.0); Mean Platelet Volume 10.4 fL (9.4-12.3); Monocytes Absolute Auto 1.1 X10*3/uL (0.1-1.2); Monocytes Percent Auto 11.3 % (2-11); Neutrophils Absolute Auto 6.6 x10*3/uL (2.0-8.3); Platelet Count 357 X10*3/uL (160-400); Red Blood Count 4.19 X10*6/uL (4.20-5.50); Red Cell Distribution Width 13.6 % (11.0-16.0); White Blood Count 9.4 X10*3/uL (4.8-10.8)
[2023-09-21 13:44] LABS: Alanine Aminotransferase 12 U/L (0-31); Albumin Level 4.2 g/dL (3.5-5.0); Alkaline Phosphatase 95 U/L (39-117); Anion Gap 11 (12-20); Aspartate Amino Transferase 18 U/L (5-31); Bilirubin Total 0.3 mg/dL (0.0-1.0); Blood Urea Nitrogen 8 mg/dL (9-16); C Reactive Protein 0.38 mg/dL (< or = 0.50); Calcium 9.5 mg/dL (8.4-10.2); Carbon Dioxide 29 mmol/L (22-29); Chloride 104 mmol/L (96-108); Estimated Glomerular Filt Rate > 60; Glucose Random 91 mg/dL (60-115); Potassium 4.7 mmol/L (3.3-5.1); Sodium 139 mmol/L (135-145); Total Protein 7.2 g/dL (6.5-8.0)
[2023-09-21 14:09] LABS: Erythrocyte Sedimentation Rate 14 MM/HR (0-20)
== END 2023-09-21 11:25 | disposition home or self-care (01) ==
LOC: HO.10HDL 11:24
PROVIDERS: Visit Provider Nurse Practitioner Family
DX: M05.79 Rheumatoid arthritis with rheumatoid factor of multiple sites without organ or systems involvement (principal); Z79.899 Other long term (current) drug therapy
CPT/HCPCS: 36415; 80053; 85025; 85652; 86140; 99212